=== PATIENT | male | born 1995 | race Asian ===

== ENCOUNTER 2017-02-18 22:56 | Emergency (ER) | payer OTHER ==
[~2017-02-18] VITALS: Ht 172.7 cm; Wt 75.0 kg
[2017-02-19 01:22] VITALS: BP 121/74
== END 2017-02-19 01:22 | disposition home or self-care (01) ==
LOC: EMS 22:57
DX: H60.92 Unspecified otitis externa, left ear (principal); F17.200 Nicotine dependence, unspecified, uncomplicated
CPT/HCPCS: 99283